=== PATIENT | male | born 1995 | race Native Hawaiian/Other Pacific Islander ===

== ENCOUNTER 2022-07-05 12:27 | Emergency (ER) | payer OTHER, SELFPAY ==
[2022-07-05 13:21] VITALS: BP 127/83; PULSE 96; TEMP 36.9; O2SAT 100; BMI 34.3
[2022-07-05] MEDS: 0.9 % SODIUM CHLORIDE 1000 ml 1,000 ML IV (14:26)
[2022-07-05] MEDS: KETOROLAC 30 MG/ML inj IVP (14:26)
[2022-07-05] MEDS: GI COCKTAIL (VISC LIDO/ANTACID) 30 ML PO (14:26)
[2022-07-05 14:49] LABS: Chloride* 103 mmol/L (96-114); Potassium* 3.7 mmol/L (3.6-5.1); Sodium* 138 mmol/L (135-149)
[2022-07-05 14:50] LABS: Basophils Absolute Auto 0.02 K/uL (0.00-0.30); Basophils Percent Auto 0.4 % (0.0-3.0); Eosinophils Absolute Auto 0.24 K/uL (0.00-0.50); Eosinophils Percent Auto 4.2 % (0.0-7.0); Hematocrit 45.8 % (37.0-53.0); Hemoglobin* 15.5 gm/dL (13.5-17.5); Immature Granulocytes Abs Auto 0.04 K/uL (0.00-0.30); Immature Granulocytes Pct Auto 0.7 %; Lymphocytes Percent Auto 14.8 % (20-44); Mean Corpuscular HGB Conc 34 gm/dL (32-36); Mean Corpuscular Hemoglobin 28 pg (26-34); Mean Corpuscular Volume 83 fL (80-100); Monocytes Percent Auto 13.7 % (0.0-11.0); Neutrophils Absolute Auto 3.76 K/uL (1.7-7.0); Neutrophils Percent Auto 66.2 % (42.0-72.0); Platelet Count* 277 K/uL (140-440); RDW Coefficient of Variation % 13.7 % (11.5-15.5); Red Blood Count 5.55 m/uL (4.30-5.90); White Blood Count* 5.68 K/uL (4.50-11.00)
[2022-07-05 14:52] LABS: Creatinine* 0.7 mg/dL (0.5-1.5); Est. Creatinine Clearance* 131.56; Estimated Glomerular Filt Rate 129 ml/min
[2022-07-05 14:53] LABS: Blood Urea Nitrogen* 14 mg/dL (5-24); Carbon Dioxide* 25 mmol/L (20-32); Glucose* 87 mg/dL (60-115)
[2022-07-05 14:54] LABS: Slide Review Reflex No
[2022-07-05 14:56] LABS: C Reactive Protein* 3.9 mg/dL (0.5-1.0)
--- NOTE | 2022-07-12 18:09 | ED.ABDPAIN ---
HPI - Abdominal Pain General Chief Complaint: Abdominal Pain Stated Complaint: Chest/abdominal pain Time Seen by Provider: 07/05/22 13:55 History of Present Illness HPI narrative: 27-year-old man presented to the emergency department with complaint of epigastric and lower abdominal pain that began yesterday. Described as a painful pressure. Feels like he can't eat anything. He is feeling bloated. Has had diarrhea. No fever. No hematochezia. No melena. No actual chest pain. No cough or dyspnea. No cardiac history. Related Data Home Medications Medication Instructions Recorded Confirmed No Known Home Medications 07/05/22 07/05/22 Allergies Allergy/AdvReac Type Severity Reaction Status Date / Time shrimp Allergy Unknown Verified 07/05/22 13:26 Review of Systems Status of ROS Reports: 10 or more systems reviewed and unremarkable except as noted in History and below PFSH PFSH Social History Smoking Status: Former smoker Do you use any of these nicotine containing products: Vaping Products Second hand tobacco smoke exposure: No How often do you have a drink containing alcohol: 2-4 times a month How many standard drinks containing alcohol do you have on a typical day: 3 or 4 How often do you have six or more drinks on one occasion: Never AUDIT-C Alcohol total score: 3 Non-prescribed substance use: denies use Exam Narrative: Exam Narrative: Pleasant. Seems generally uncomfortable. Breathing easily. NAD. Skin is warm and dry without rash. Well-perfused peripherally. No edema. Lungs are clear. Chest is without reproducible tenderness. Elevated heart rate in a regular rhythm. No murmur or rub. Oropharynx is sticky. Supple without lymphadenopathy. Abdomen with normoactive bowel sounds soft. No peritoneal signs. There is reproducible tenderness in the epigastrium and across the middle and low abdomen. Little tympanitic in the upper abdomen. No mass is appreciated. Const: Documenting provider has reviewed patient's vital signs: yes Course Vital Signs Vital signs: Initial Vital Signs Temperature 98.5 F 07/05/22 13:21 Temperature Source Temporal Artery Scan 07/05/22 13:21 Pulse Rate 96 07/05/22 13:21 Blood Pressure 127/83 07/05/22 13:21 Blood Pressure Mean 97 07/05/22 13:21 Blood Pressure Position Sitting 07/05/22 13:21 Pulse Oximetry 100 07/05/22 13:21 Oxygen Delivery Method 07/05/22 13:21 Vital Signs Temperature 98.5 F 07/05/22 13:21 Pulse Rate 96 07/05/22 13:21 Blood Pressure 127/83 07/05/22 13:21 Pulse Oximetry 100 07/05/22 13:21 Oxygen Delivery Method 07/05/22 13:21 Temperature 98.5 F 07/05/22 13:21 Pulse Rate 96 07/05/22 13:21 Blood Pressure 127/83 07/05/22 13:21 Pulse Oximetry 100 07/05/22 13:21 Oxygen Delivery Method 07/05/22 13:21 MDM - Abdominal Pain MDM Narrative Medical decision making narrative: We discussed workup. Treatment for symptoms and basic lab work looking for red flags. All-in-all labs reassuring. Mildly elevated CRP. Improved with fluids, ketorolac and gi cocktail. Reexamination with mostly a little epigastric discomfort. Seemed relieved. Lab Data Attestation: I reviewed the patient's lab results. Labs: Lab Results 07/05/22 07/05/22 Range/Units 14:20 14:20 WBC 5.68 (4.50-11.00) K/uL RBC 5.55 (4.30-5.90) m/uL Hgb 15.5 (13.5-17.5) gm/dL Hct 45.8 (37.0-53.0) % MCV 83 (80-100) fL MCH 28 (26-34) pg MCHC 34 (32-36) gm/dL RDW Coeff of Criselda 13.7 (11.5-15.5) % Plt Count 277 (140-440) K/uL Neut % (Auto) 66.2 (42.0-72.0) % Lymph % (Auto) 14.8 L (20-44) % [place] % (Auto) 13.7 H (0.0-11.0) % Eos % (Auto) 4.2 (0.0-7.0) % Baso % (Auto) 0.4 (0.0-3.0) % Neut # (Auto) 3.76 (1.7-7.0) K/uL Lymph # (Auto) 0.80 L (0.90-2.90) K/uL Providence # (Auto) 0.80 (0.00-0.90) K/UL Eos # (Auto) 0.24 (0.00-0.50) K/uL Baso # (Auto) 0.02 (0.00-0.30) K/uL Abs Immat Gran (auto) 0.04 (0.00-0.30) K/uL Imm/Tot Granulo (auto) 0.7 % Sodium 138 (135-149) mmol/L Potassium 3.7 (3.6-5.1) mmol/L Chloride 103 (96-114) mmol/L Carbon Dioxide 25 (20-32) mmol/L BUN 14 (5-24) mg/dL Creatinine 0.7 (0.5-1.5) mg/dL Estimated Creat Clear 131.56 Estimated GFR 129 ml/min Glucose 87 (60-115) mg/dL Calcium 9.0 (8.4-10.6) mg/dL C-Reactive Protein 3.9 H (0.5-1.0) mg/dL Discharge Plan Discharge Clinical Impression: Enteritis, Abdominal pain, Dehydration Patient Disposition: Home, Self-Care Condition: Improved Additional Instructions: Focus on hydration. Slow advance of diet over the next 36 hours. Go with diluted juices and soup broths advancing to thicker soups and smoothies. Rice. [place]. Can take take loperamide for diarrhea as long as not having a fever or having blood in stool. Might try liquid Maalox equivalent for stomach upset/burning. Prescriptions: No Action No Known Home Medications Follow Up/Referrals: Provider,Not a Local [Primary Care Provider] - Stand Alone Forms: Image Space [employer] Info Instructions
== END 2022-07-05 16:01 | disposition home or self-care (01) ==
PROVIDERS: Emergency Provider Family Medicine
DX: K52.9 Noninfective gastroenteritis and colitis, unspecified (principal); E86.0 Dehydration
CPT/HCPCS: 36415; 80048; 85025; 86140; 96374; 99283; 99284; A9270; J1885; J7030

== ENCOUNTER 2025-05-12 14:17 | Emergency (ER) | payer BC, SELFPAY ==
--- OUTSIDE RECORDS SUMMARY | 2025-05-12 14:19 | XMS_ITS | Clinical Summary ---
Author Organization [facility] Address [address] [place] [id number] Care Team Providers Care Desktop Administrator Name Role Phone Maria Esther Armando Primary Care Provider Allergies Active Allergy Reactions Criticality Noted Date Comments Pollen Extracts Runny Nose 01/20/2022 Shrimp Itching 10/14/2017 Medications gemfibroziL (LOPID) 600 mg tabletIndicatio ns:Hypertriglyc eridemia Take 1 Tablet (600 mg) by mouth two times daily before meals. 180 Tablet 3 4 Active Additional Information Patient not taking.Reported on 04/17/2025 Active Problems Problem Noted Date Diagnosed Date Psoriasis 12/14/2021 Overview (12/14/2021): Elbows, knees, dx 2013 Hypercholesteremia 05/15/2014 Hypertriglyceridemia 08/20/2013 COVID-19 virus infection Encounters Date Type Department Care Team Description 04/17/2025 1:15 PM CDT Office Visit [facility] [address] [place] [address] Pooja Segovia MD STD (Patient would like STD screening, no known exposure ) 04/17/2025 Travel from Last 3 Months Immunizations Immunization Administration Dates Next Due Human Papilloma Virus Vaccine 09/05/2012, 012,02/29/2012 Influenza, IIV3 (Age 6-35 mos) 09/05/2012 Influenza, IIV3 (Age >=3 years) 08/13/2013 Influenza, IIV4 05/13/2014 Pneumococcal Conj 20-valent (Prevnar 20) 023 Tdap 06/08/2024,05/13/2014 Family History Medical History Relation Name Comments Good Health Brother Half Brother Cancer-prostate Father Diabetes Father Hyperlipidemia Father Hypertension Father Cancer-breast Maternal Aunt Aneurysm Mother Hyperlipidemia Mother Hypertension Mother Diabetes Paternal Grandfather Diabetes Paternal Grandmother Good Health Sister Relation Name Status Comments Brother Half Brother Alive Father Alive Maternal Aunt Alive Maternal Grandfather Maternal Grandmother Alive Mother Alive Paternal Grandfather Paternal Grandmother Sister Alive Social History Tobacco Use Types Packs/Day Years Used Date Smoking Tobacco: Some Days Cigarettes 0 12.8 Started: 2012 Smokeless Tobacco: Never Tobacco Cessation:Ready to Q uit: Not Asked; Counseling Given: Not Answered Comments:vaping and a pack of cigarettes can last him about a month or more Alcohol Use Standard Drinks/Week Comments Yes 0 (1 standard drink = 0.6 oz pur e alcohol) once a month or so PHQ-2 Answer Date Recorded PHQ-2 TOTAL SCORE 3 10/01/2022 Social Connections Answer Date Recorded Do you often feel lonely or isolated from those around you? 0 05/17/2024 Alcohol Use Answer Date Recorded How often do you have a drink containing alcohol ? 2 04/17/2025 How many drinks containing a lcohol do you have on a typical day when you are drinking? 0 04/17/2025 Frequency of Binge Drinking Not on file 03/26 Financial Resource Strain Answer Date R ecorded Difficulty of Paying Living Expenses 3 05/17/2024 Difficulty of Paying Living Expenses Not on file 05/17/2024 Food Insecurity Answer Date Recorded Do you worry your food will run out before you are able to buy more? 1 05/17/2024 Transportation Needs Answer Date Record ed Does lack of transportation keep you from medica l appointments? 1 05/17/2024 Does lack of transportation keep you from work, meetings or getting things that you need? 1 05/17/2024 Housing Stability Answer Date Recorded What is your housing situation today? 1 05/17/2024 Utilities Answer Date Recorded Do you have trouble paying f or utilities (for example, heat, electricity, water, phone)? 1 05/17/2024 Sex and Gender Information Value Date Recorded Sex Assigned at Not on file Legal Sex Male 8:36 AM [employer] Gender Identity Not on file Sexual Orientation Not on file Occupation Industry Job Start Date Job End Date Not on file Not on file Not on file Not on file Obstetrics History Last Filed Vital Signs Vital Sign Reading Time Taken Comments Blood Pressure 111/74 04/17/2025 1:21 PM CDT Pulse 105 04/17/2025 1:21 PM CDT Temperature 36.9 C (98.4 F) 05/17/2024 11:14 AM CDT Respiratory Rate 18 08/31/2022 1:33 PM [employer] Oxygen Saturation 95% 04/17/2025 1:21 PM CDT Inhaled Oxygen Concentration - - Weight 97.2 kg (214 lb 3.2 oz) 04/17/2025 1:21 P M CDT Height 162 cm (5' 3.78) 10/01/2022 7:18 AM [employer] Body Mass Index 37.02 10/01/2022 7:18 AM [employer] Plan of Treatment Health Maintenance Due Date Last Done Comments Hepatitis B series for 19+ ( 1 of 3 - 19+ 3-dose series) 2013 BMI (ht and wt on same day) for age 18+ 10/02/2023 10/01/2022, 12/14/2021, 06/17/2020, Additional history exists Depression screening for age 12+ 10/02/2023 10/01/2022, 12/27/2018, 10/14/2017, Additional history exists COVID-19 vaccine series (2023- season) 2025 Influenza Vaccine (#1) 2025 4, 08/13/2013, 09/05/2012 Tetanus booster 06/08/2034 06/08/2024, 05/13/2014 RSV vaccine for adults or (1 - 1-dose 75+ series) 2069 HPV series for age 9-45 Completed 12/11/19 14 (Completed outside of [facility]), 09/05/2012, 05/02/2012, Additional history exists Hepatitis C screening for ag e 18-79 Completed 10/01/2022, 06/17/2020, 08/29/2018, Additional history exists Pneumococcal series for age 6-49 Completed 10/02/19 23 HIV for age 15-65 Completed 04/17/2025, , 10/01/2022, Additional history exists Procedures Procedure Name Priority Date/Time Associated Diagnosis Comments TREPONEMA PALLIDUM Routine 04/17/2025 1: 57 PM CDT Routine screening for STI (sexually transmitted infection) GC CHLAMYDIA TRACH PROBE Routine 04/17/2025 1:57 PM CDT Routine screening for STI (sexually transmitted infection) ANTI HIV 1/2 Routine 04/17/2025 1:57 PM CDT Routine screening for STI (sexually transmitted infection) LC HCV ANTIBODY RFX TO QUANT PCR Routine 10/01/2022 8:07 AM [employer] Screen for STD (sexually transmitted disease) from Last 3 Months or Most Recently Relevant to Health Maintenance Results * TREPONEMA PALLIDUM (04/17/2025 1:57 PM CDT) TREPONEMA PALLIDUM Non-Reacti ve Non-Reacti ve 04/17/2025 11:20 PM CDT [facility] Blood BLOOD SPECIMEN / Unknown [facility] / Unknown 04/17/2025 1:57 PM CDT 04/17/2025 1:57 PM CDT us Pooja Segovia MD SEND OUTS Fi nal Result [facility] [address] [place] [address], * GC & CHLAMYDIA DNA PCR [[id number]] (04/17/2025 1:57 PM CDT) CHLAMYDIA PROBE Negative 12:33 PM CDT [facility] N GONORRHOEAE PROBE Negative 04/18/2025 12:33 PM CDT [facility] Other URINE SPECIMEN / Unknown Non-Blood / Unknown 04/17/2025 1:57 PM CDT 04/17/2025 1:57 PM CDT Pooja Segovia MD MICROBIOLOGY Fi nal Result [facility] [address] [place] [address], * ANTI HIV 1/2 (04/17/2025 1:57 PM CDT) HIV FINAL INTERPRETATOIN HIV NEGATIVE 04/18/2025 1:43 PM CDT [facility] Comment: HIV-1 antigen and HIV-1/HIV-2 antibodies were not detected. There is no laboratory evidence of HIV infection. HIV AG/AB, 4TH GEN NON-REACTIV E NON-REAC TIVE 04/18/2025 1:43 PM CDT [facility] Blood BLOOD SPECIMEN / Unknown [facility] / Unknown 04/17/2025 1:57 PM CDT 04/17/2025 1:57 PM CDT Pooja Segovia MD SEND OUTS Fi nal Result Performing Organization Address City/[facility]/ZIP Co de Phone Number [facility] [address] [id number], * LC HCV ANTIBODY RFX TO QUANT PCR (10/01/2022 8:07 AM [employer]) HCV Ab Non Reactive Non Reactive 10/05/2022 1:[address] [facility] Blood BLOOD SPECIMEN / Unknown Venipuncture / Unknown 10/01/2022 8:07 AM [employer] 10/01/2022 8:10 AM [employer] Narrative [facility] ([facility]) - 10/05/2022 1:09 PM CDT Performed at: [address] [place] [address] [id number] Clay Artisan: Ravi Sanz MD, Phone: [phone] us [facility] Final Res ult [facility] ([facility]) [address] [place] [id number], [place] from Last 3 Months or Most Recently Relevant to Health Maintenance Insurance [facility] Care Teams Desktop Administrator Relationship Specialty Start Date End Date Maria Esther Armando PA [address] [place] [address] PCP - General Family Practice 02/13/13
[2025-05-12 14:27] VITALS: BP 147/89; PULSE 88; RESP 16; TEMP 36.6; O2SAT 98; BMI 35.4
[2025-05-12 14:42] VITALS: O2SAT 99
--- NOTE | 2025-05-12 14:43 | ED.GENADULT ---
HPI - General Adult General Chief complaint: Allergic Reaction Stated complaint: allergic reaction Time Seen by Provider: 05/12/25 14:24 History of Present Illness HPI narrative: Patient is a pleasant 30 year old male with history of shrimp allergy any reported eating some shrimp and some pasta. He started having some reaction. He has not taken any medication. He has never needed an EpiPen for this. Typically gets hives. He denies any shortness of breath or mouth symptoms, no tongue swelling. He has no other complaints. No new medications. He did take some ibuprofen today. Related Data Previous Rx's ?Medication ?Instructions ?Recorded prednisone 20 mg tablet 20 mg PO BID #10 tabs 05/12/25 Allergies Allergy/AdvReac Type Severity Reaction Status Date / Time shrimp Allergy Unknown Verified 07/05/22 13:26 Review of Systems Status of ROS: Reports: 6 or more systems reviewed and unremarkable except as noted in History and below PFSH PFS Social History Smoking Status: Former smoker Do you use any of these nicotine containing products: Vaping Products Second hand tobacco smoke exposure: No How often do you have a drink containing alcohol: 2-4 times a month How many standard drinks containing alcohol do you have on a typical day: 3 or 4 How often do you have six or more drinks on one occasion: Never AUDIT-C Alcohol total score: 3 Non-prescribed substance use: denies use Exam Narrative: Exam Narrative: Objective: Vital signs look within normal limits other than slightly elevated blood pressure, O2 sats 90% on room air Alert orient x3 He has got skin exam showing some urticaria over his face Mouth is clear Lungs are clear to auscultation Normal neurologic Mental status is appropriate alert orient x3 no distress smiling interactive Const: Vital Signs, click to edit/add: Vital Signs - 24 hr 05/12/25 14:27 05/12/25 14:42 05/12/25 16:07 Temperature 97.8 F Pulse Rate [Pulse Oximeter] 88 70 Respiratory Rate 16 16 Blood Pressure [Ri ght Upper Arm] 147/89 H 116/72 Pulse Oximetry 98 99 Oxygen Delivery Me thod Room Air Course Vital Signs Vital signs: Initial Vital Signs Temperature 97.8 F 05/12/25 14:27 Temperature Source Temporal Artery Scan 05/12/25 14:27 Pulse Rate 88 05/12/25 14:27 Pulse Rhythm Regular 05/12/25 14:27 Respiratory Rate 16 05/12/25 14:27 Blood Pressure 147/89 H 05/12/25 14:27 Blood Pressure Mean 108 H 05/12/25 14:27 Blood Pressure Position Sitting 05/12/25 14:27 Pulse Oximetry 98 05/12/25 14:27 Oxygen Delivery Method Room Air 05/12/25 14:27 Vital Signs Temperature 97.8 F 05/12/25 14:27 Pulse Rate 88 05/12/25 14:27 Respiratory Rate 16 05/12/25 14:27 Blood Pressure 147/89 H 05/12/25 14:27 Pulse Oximetry 98 05/12/25 14:27 Oxygen Delivery Method Room Air 05/12/25 14:27 Temperature 97.8 F 05/12/25 14:27 Pulse Rate 70 05/12/25 16:07 Respiratory Rate 16 05/12/25 16:07 Blood Pressure 116/72 05/12/25 16:07 Pulse Oximetry 99 05/12/25 14:42 Oxygen Delivery Method Room Air 05/12/25 14:27 Medications Administered Medications: Discontinued Medications Generic Name Dose Route Start Last Admin Trade Name Freq PRN Reason Stop Dose Admin Diphenhydramine HCl 50 mg 05/12/25 14:41 05/12/25 15:00 Diphenhydramine 50 Mg/Ml Inj IVP 05/12/25 14:42 50 mg ONCE ONE Administration Sodium Chloride 1,000 mls @ 6,000 mls/hr 05/12/25 14:45 05/12/25 15:00 0.9 % Sodium Chloride 1000 Ml IV 05/12/25 14:54 6,000 mls/hr .Q10M ALMA Administration Methylprednisolone Sodium Succinate 125 mg 05/12/25 14:41 05/12/25 15:00 Methylprednisolone Sod Succ 62.5 Mg/Ml (125) IVP 05/12/25 14:42 125 mg ONCE ONE Administration Medical Decision Making MDM Narrative Medical decision making narrative: [age] white male with a history of shrimp allergy ate shrimp and has a reaction. He has got hives noted. Will get him Benadryl IV and IV of L of normal saline and Solu-Medrol 125 IV. He will be observed in the ED for a period time likely would benefit from steroids and Benadryl to continue at home. Will make she improves here. He can discuss with his regular doctor whether he thinks allergy testing or other interventions such as EpiPen would be appropriate for him but he has not had serious reaction at this point. I do not believe he needs epinephrine today. Addendum 3:46 p.m.: The patient feels markedly better, his hives have resolved. He has no further itchiness of his skin. He has been hemodynamically stable. He did receive Solu-Medrol and Benadryl IV. He will get a ride home. Would continue prednisone 20 b.i.d. for the next 5 days, continue Benadryl 25 mg t.i.d. for the next couple of days. Would recommend he be off work today and tomorrow. No driving alcohol or working on heights if he is on Benadryl. Recommend recheck with regular doctor regarding allergy treatment in the next week. Return back to the ED are problems or concerns. Discharge Plan Discharge Clinical Impression: Allergic reaction, Allergy to food Patient Disposition: Home w/ Parent or Adult Condition: Improved Additional Instructions: Continue Benadryl 25-50 mg 3 times a day over the next 3 days, light activity recommended, drink lots of fluids, prednisone 20 mg b.i.d. x5 days start tomorrow. Recommend to me with your regular doctor discussing allergy within the next week, recommend off work today and tomorrow: Note written. Activity Level: Light activity Discharge Diet: Regular Prescriptions: New prednisone 20 mg tablet 20 mg PO BID Qty: 10 0RF Follow Up/Referrals: Provider,Not a Local [Primary Care Provider, Family Practice] Stand Alone Forms: iGo Info Instructions
[2025-05-12] MEDS: METHYLPREDNISOLONE SOD SUCC 62.5 MG/ML (125) 125 MG IVP (15:00)
[2025-05-12 16:07] VITALS: BP 116/72; PULSE 70; RESP 16
== END 2025-05-12 16:08 | disposition home or self-care (01) ==
PROVIDERS: Emergency Provider Family Medicine
DX: L50.9 Urticaria, unspecified (principal); T78.19XA Other adverse food reactions, not elsewhere classified, initial encounter
CPT/HCPCS: 94761; 96374; 96375; 99284; J1200; J2919; J7030